=== PATIENT | female | born 1990 | race Caucasian/White ===

== ENCOUNTER 2016-12-05 06:10 | Emergency (ER) | payer MEDICAID ==
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
[~2016-12-05 06:10] MED LIST: FLAGYL500 MG PO; MOTRIN800 MG PO; NORCO 5-325 MG1 TAB PO; PERCOCET 5-3251 EACH PO; PRENATAL 1+1)(P1 TAB PO; TYLENOL325 MG PO; XARELTO15 MG PO; XARELTO20 MG PO
[2016-12-05 06:54] LABS: BASOPHIL # 0.1 K/uL (0.0-0.2); BASOPHIL % 0.4 %; EOSINOPHIL # 0.5 K/uL (0.0-0.5); EOSINOPHIL % 3.3 %; HEMATOCRIT 45.5 % (33.0-46.0); HEMOGLOBIN 14.7 g/dL (11.0-15.0); IMMATURE GRANULOCYTE # 0.1 K/uL (0.0-0.3); IMMATURE GRANULOCYTE % 0.6 %; LYMPHOCYTE % 24.9 %; MCH 29.1 pg (27.0-34.0); MCHC 32.3 gm/dL (32.0-36.5); MCV 89.9 fl (83.0-98.0); MONOCYTE # 1.2 K/uL (0.0-1.0); MONOCYTE % 7.3 %; MPV 10.4 fl (9.4-12.4); NEUTROPHIL # (ANC) 10.1 K/uL (1.8-7.8); NEUTROPHIL % 63.5 %; NRBC % 0 /100WBC (0-0.00); PLATELET COUNT 210 K/uL (150-450); RBC 5.06 M/uL (3.50-5.00); RDW-CV 12.9 % (11.9-14.6)
[2016-12-05 07:03] LABS: PROTIME 10.6 SECONDS (9.6-11.1); PTT 25 SECONDS (25-32)
[2016-12-05 07:14] LABS: ALBUMIN 3.5 gm/dL (3.5-5.0); ALK PHOS 120 IU/L (33-138); ALT 32 IU/L (12-78); ANION GAP 10.6 (10.0-19.0); AST 20 IU/L (10-40); BLOOD UREA NITROGEN 8 mg/dL (6-24); CALCIUM 8.7 mg/dL (8.5-10.5); CHLORIDE 105 mMol/L (96-110); CO2 28 mMol/L (22-32); CPK 71 IU/L (21-215); CREATININE 0.8 mg/dL (0.5-1.1); ESTIMATED GFR (MDRD EQUATION) > 60; POTASSIUM 3.6 mMol/L (3.7-5.1); SODIUM 140 mMol/L (135-145); TOTAL BILIRUBIN 0.2 mg/dL (0.0-1.5); TOTAL PROTEIN 7.9 g/dL (6.0-8.4)
[2016-12-05 07:21] LABS: BILIRUBIN URINE NEGATIVE (NEGATIVE); BLOOD URINE NEGATIVE /UL (NEGATIVE); COLOR URINE YELLOW (YELLOW); GLUCOSE URINE NEGATIVE (NEGATIVE); KETONE URINE NEGATIVE (NEGATIVE); LEUKOCYTES URINE NEGATIVE /UL (NEGATIVE); NITRITE URINE NEGATIVE (NEGATIVE); PH URINE 6.5 (4.0-8.0); PROTEIN URINE NEGATIVE (NEGATIVE); TURBIDITY URINE CLEAR (CLEAR); UROBILINOGEN URINE NORMAL (NORMAL)
[2016-12-05 07:34] LABS: BARBITURATE NEGATIVE (NEGATIVE); COCAINE NEGATIVE (NEGATIVE); OPIATES NEGATIVE (NEGATIVE)
[2016-12-05 07:39] LABS: AMPHETAMINE NEGATIVE (NEGATIVE)
== END 2016-12-05 08:15 | disposition disaster alternative care site (69) ==
LOC: GACC 06:10
PROVIDERS: Emergency Medicine
DX: S60.221A Contusion of right hand, initial encounter (principal); S40.012A Contusion of left shoulder, initial encounter; S70.12XA Contusion of left thigh, initial encounter; S70.11XA Contusion of right thigh, initial encounter; S10.91XA Abrasion of unspecified part of neck, initial encounter; Z79.899 Other long term (current) drug therapy; Z88.5 Allergy status to narcotic agent; Z79.01 Long term (current) use of anticoagulants; V89.2XXA Person injured in unspecified motor-vehicle accident, traffic, initial encounter; Y92.410 Unspecified street and highway as the place of occurrence of the external cause
CPT/HCPCS: G0480; J3010; Q9967